=== PATIENT | male | born 1975 | race Caucasian/White ===

== ENCOUNTER 2022-02-01 21:19 | Emergency (ER) | payer BC ==
[2022-02-01] MEDS ORDERED: GI Cocktail Oral Solution 30 ML PO ONE (22:01)
[2022-02-01 22:33] LABS: ANION GAP 13.6 mmol/L (5-15); CHLORIDE,CL 105 mmol/L (98-107); ESTIMATED GFR 107 mL/min (>=60); SODIUM,NA 142 mmol/L (136-145)
== END 2022-02-01 23:00 | disposition home or self-care (01) ==
LOC: VM.ED 21:19
DX: R10.10 Upper abdominal pain, unspecified (principal); I10 Essential (primary) hypertension; E11.9 Type 2 diabetes mellitus without complications; Z88.5 Allergy status to narcotic agent; Z79.899 Other long term (current) drug therapy
CPT/HCPCS: 36415; 80053; 82150; 83605; 83690; 83735; 85025; 86140; 93005; 93010; 99284; A9270-GY